=== PATIENT | female | born 1995 | race Hispanic/Latino ===

== ENCOUNTER 2017-07-02 14:00 | Emergency (ER) | payer MEDICAID ==
[2017-07-02] MEDS ORDERED: ONDANSETRON ODT 4 MG TAB ONE ×2 (14:46)
[2017-07-02 15:03] LABS: BASOPHILS % (AUTO) 0.2 % (0.0-5.0); EOSINOPHILS % (AUTO) 0.7 % (0.0-8.0); HEMATOCRIT 40.7 % (36-48); LYMPHOCYTES % (AUTO) 6.1 % (21.0-51.0); MEAN CORPUSCULAR HEMOGLOBIN 30.6 pg (27.0-33.0); MEAN CORPUSCULAR HGB CONC 34.6 g/dL (32.0-36.0); MEAN CORPUSCULAR VOLUME 88.4 fL (80-100); MONOCYTES % (AUTO) 3.9 % (3.0-13.0); NEUTROPHILS % (AUTO) 89.1 % (40.0-77.0); NUCLEATED RED BLOOD CELLS 0.1 % (0.0-0.19); PLATELET COUNT (AUTO) 172 K/uL (130-400); RED BLOOD CELL COUNT(AUTO) 4.61 MIL/uL (4.00-5.50); RED CELL DISTRIBUTION WIDTH 13.8 % (11.0-15.5); WHITE BLOOD COUNT (AUTO) 9.2 K/uL (4.8-10.8)
[2017-07-02 15:12] LABS: CREATININE 0.4 mg/dL (0.5-1.5); POTASSIUM 3.9 mmol/L (3.5-5.1)
[2017-07-03] MEDS ORDERED: ALBU0.63 IH (11:16)
[2017-07-03] MEDS ORDERED: POLY17PO4 PEG (11:16)
== END 2017-07-02 16:15 | disposition home or self-care (01) ==
LOC: EDH 14:00
DX: R11.0 Nausea (principal); Z93.1 Gastrostomy status; Z98.890 Other specified postprocedural states
CPT/HCPCS: 36415; 80048; 85025

== ENCOUNTER 2017-07-04 08:05 | Day surgery (SDC) | payer MEDICAID ==
[~2017-07-04] VITALS: Ht 149.9 cm; Wt 34.0 kg
[~2017-07-04 08:05] MED LIST: ALBU0.63 IH; POLY17PO4 PEG; SODIUM CHLORIDE 0.9% 1000ML 1,000 ML IV ONE
[2017-07-04 09:35] VITALS: BP 98/65
[2017-07-04 11:00] VITALS: BP 117/56
== END 2017-07-04 11:57 | disposition home or self-care (01) ==
LOC: DAH 08:05 → ENDO 08:05
PROVIDERS: ATTEND Internal Medicine
DX: Z43.1 Encounter for attention to gastrostomy (principal); G80.9 Cerebral palsy, unspecified; Z98.890 Other specified postprocedural states; Z79.899 Other long term (current) drug therapy
CPT/HCPCS: 36415; 43760; 84703; A4606; J7030

== ENCOUNTER → 2017-07-11 | Outpatient (CLI) | payer MEDICAID ==
[~2017-07-11] MED LIST changes: +IOPAMIDOL-370 75 ML VIAL IV ONE; -SODIUM CHLORIDE 0.9% 1000ML 1,000 ML IV ONE
== END | disposition home or self-care (01) ==
LOC: RAH 08:36
PROVIDERS: ATTEND Internal Medicine Gastroenterology
DX: R10.84 Generalized abdominal pain (principal); Z98.890 Other specified postprocedural states
CPT/HCPCS: 74177; Q9967

== ENCOUNTER → 2020-07-25 | Outpatient (CLI) | payer MEDICAID ==
[~2020-07-25] MED LIST changes: -IOPAMIDOL-370 75 ML VIAL IV ONE
== END | disposition home or self-care (01) ==
LOC: RAH 10:58
PROVIDERS: ATTEND Family Medicine
DX: R13.12 Dysphagia, oropharyngeal phase (principal)
CPT/HCPCS: 74230; 92611

== ENCOUNTER → 2023-01-01 | Outpatient (CLI) | payer MEDICAID | END | disposition home or self-care (01) | LOC: RAH 13:05 | PROVIDERS: ATTEND Internal Medicine Gastroenterology | DX: R13.12 Dysphagia, oropharyngeal phase (principal); R63.30 Feeding difficulties, unspecified | CPT/HCPCS: 74230; 92611 ==